=== PATIENT | male | born 1970 | race African-American/Black ===

== ENCOUNTER 2018-02-19 12:21 | Emergency (ER) | payer SELFPAY ==
[2018-02-19 12:28] VITALS: BP 114/69
[2018-02-19] MEDS ORDERED: PENICILLIN V POTASSIUM 500 MG TABLET PO ONE (12:56)
[2018-02-19] MEDS: IBUPROFEN 600 MG TABLET PO ONE ×2 (13:01→13:04)
--- NOTE | 2018-02-19 13:01 | ER Document Report ---
ED General - General Chief Complaint: Abscess Stated Complaint: POSSIBLE ABSCESS Time Seen by Provider: 02/19/18 12:41 TRAVEL OUTSIDE OF THE [place] IN LAST 30 DAYS: No - HPI Notes: Patient is a 47-year-old male that presents to the emergency department for chief complaint of facial swelling and dental pain. Patient has had increased pain on his left maxillary posterior molars for the last 2 days. Yesterday he began having swelling on the left side of his face. He reports history of dental infections in the past. He is not currently on antibiotics. He denies any drainage into his mouth. He denies any difficulty swallowing or breathing. He does endorse low-grade temperature at home. His pain is described as sharp. He has some relief at home with Motrin. It is aggravated by eating. Past Medical History: Negative Past Surgical History: Negative Social History: Denies tobacco. daily marijuana. Denies alcohol Family History: Reviewed and noncontributory for presenting illness Allergies: Reviewed, see documented allergy list. REVIEW OF SYSTEMS: CONSTITUTIONAL : fever No chills No diaphoresis No recent illness EENT: No vision changes No congestion No sore throat Dental pain, facial swelling CARDIOVASCULAR: No chest pain No palpitations RESPIRATORY: No shortness of breath No cough No difficulty breathing GASTROINTESTINAL: No abdominal pain No nausea No vomiting No diarrhea GENITOURINARY: No dysuria No hematuria No difficulty urinating MUSCULOSKELETAL: No back pain No leg pain No arm pain SKIN: No rashes No lesions LYMPHATIC: No swollen, enlarged glands. NEUROLOGICAL: No lightheadedness No headache No weakness No paresthesias PSYCHIATRIC: No anxiety No depression PHYSICAL EXAMINATION: Vital signs reviewed, nursing noted reviewed. GENERAL: Well-appearing, well-nourished and in no acute distress. HEAD: Atraumatic, normocephalic. EYES: Eyes appear normal, extraocular movements intact, sclera anicteric, conjunctiva are normal. ENT: nares patent, oropharynx clear without exudates. Moist mucous membranes. Diffuse dental decay, posterior left maxillary molar decayed with tenderness to percussion and overlying gingival erythema. Left facial edema. No area of fluctuance. NECK: Normal range of motion, supple without lymphadenopathy LUNGS: Breath sounds clear to auscultation bilaterally and equal. No wheezes rales or rhonchi. HEART: Regular rate and rhythm without murmurs ABDOMEN: Soft, nontender, normoactive bowel sounds. No rebound, guarding, or rigidity. No masses appreciated. EXTREMITIES: Nontender, good range of motion, no pitting or edema. NEUROLOGICAL: No focal neurological deficits. Moves all extremities spontaneously Motor and sensory grossly intact on exam. PSYCH: Normal mood, normal affect. SKIN: Warm, Dry, normal turgor, no rashes or lesions noted on exposed skin - Related Data Allergies/Adverse Reactions: No Known Allergies Allergy (Unverified 11/08/15 00:34) Past Medical History - Social History Smoking Status: Never Smoker Family History: Reviewed & Not Pertinent Review of Systems - Review of Systems Notes: Dictated Physical Exam - Vital signs Vitals: Temp Pulse Resp BP Pulse Ox 99.5 F 62 20 114/69 97 02/19/18 12:02/19/18 12:02/19/18 12:02/19/18 12:02/19/18 12:26 - Notes Notes: Dictated Course - Re-evaluation Re-evalutation: 02/19/18 12:59 Vitals reviewed. Nursing notes reviewed. Patient has left maxillary dental infection with facial swelling. There is no abscess requiring drainage. There is no sublingual edema or Chapin's angina. Patient is nontoxic and in no acute distress. He was given ibuprofen and penicillin VK. He has a dentist that he will follow-up with in the next few days for reevaluation. He was told to return for worsening symptoms including fevers and swelling of his face. Discharged home in stable condition. - Vital Signs Vital signs: Temp Pulse Resp BP Pulse Ox 99.5 F 62 20 114/69 97 02/19/18 12:02/19/18 12:02/19/18 12:02/19/18 12:02/19/18 12:26 Discharge - Discharge Clinical Impression: Dental infection, Facial edema Condition: Stable Disposition: HOME, SELF-CARE Instructions: Dental Infection or Abscess ([facility]) Additional Instructions: Please return to the emergency department if you have any worsening, or concern of your symptoms. Please return to the emergency department if you develop chest pain, difficulty breathing, severe abdominal pain, or ongoing vomiting. Please follow-up with your primary care physician in 2-3 days and any other recommended physicians. If prescribed, take all medications as directed. If you have any questions or concerns do not hesitate to return the emergency department for evaluation. [] Prescriptions: Penicillin V Potassium [Penicillin Vk 500 mg Tablet] 500 mg PO BID #20 tablet
== END 2018-02-19 13:15 | disposition home or self-care (01) ==
LOC: ER 12:21
DX: K04.7 Periapical abscess without sinus (principal); K02.9 Dental caries, unspecified; R60.0 Localized edema
CPT/HCPCS: 99282